=== PATIENT | male | born 1965 | race Caucasian/White ===

== ENCOUNTER → 2023-11-25 10:35 | Outpatient (REF) | payer OTHER, SELFPAY | LOC: RCS 10:35 | PROVIDERS: ATTENDING PHYSICIAN Internal Medicine | DX: R06.09 Other forms of dyspnea (principal) | CPT/HCPCS: 93017; 93005; 93350 ==

== ENCOUNTER 2024-01-02 06:16 | Day surgery (SDC) | payer OTHER, SELFPAY ==
[2023-12-25 08:24] VITALS: BMI 29.3
--- NOTE | 2023-12-25 14:24 | HPS.HSE ---
Family Physician
-
Family Physician: Cesar Winter
Chief Complaint
-
Precordial chest pain.
History of Present Illness
The patient is a 58 year old male presenting today for precordial chest pain. He reports that in September 2023 he attempted to take a hike with his son and in [place], [place]. He ascended approximately 50 yards and experienced an
episode of substernal chest tightness that radiated down his bilateral arms. This was also accompanied by shortness of breath and hand paraesthesias. His chest pain was noted to resolve after 5-10 minutes at rest. Since then, he has experienced more
mild versions of the same chest discomfort when walking uphill, even at short distances. He did undergo a stress echocardiogram in November 2023 for which he exercised 9 minutes of the Benjamin protocol to 93% MPHR. He did experience 3/10 chest pain at peak
exercise without ischemic EKG changes. It is recommended he undergo a left cardiac catheterization for further symptom assessment. He denies any current complaints today such as chest pain and shortness of breath at rest, nausea, vomiting, diarrhea,
lightheadedness, dizziness, cough, sore throat, or fever.
Medical History
Past Medical History
Past Medical History: Reports Other
Additional Past Medical History:
1. Precordial chest pain.
2. Coronary artery disease by elevated coronary calcium score.
3. Hypertension.
4. Dyslipidemia.
5. PACs and PVCs, asymptomatic.
6. Allergy induced asthma.
7. GERD.
8. Colon polyps.
9. Diverticulosis.
10. Vertigo.
11. Lumbar herniated discs.
12. Sciatica.
13. Renal cell carcinoma, status post left partial nephrectomy 2014.
14. Infrequent tobacco abuse.
Past Surgical History: Reports Other
Additional Past Surgical History:
1. Left partial nephrectomy.
2. Abdominal hernia repair in childhood.
3. [place] teeth extraction.
4. Colonoscopy.
Social History
Tobacco: Other (He reports infrequent cigar smoking while golfing; otherwise, he denies any other past history of tobacco abuse. )
Alcohol: Occasional
Personal:
Living: Other (He lives with his in a 2 story home. His son will also be living in the household soon. )
Family History
Family History: Not pertinent
Allergies / Home Medications
Allergy/Medication List:
Home medications:
1. Aspirin 81 mg p.o. daily.
2. Claritin 10 mg p.o. daily as needed.
3. Losartan 12.5 mg p.o. daily.
4. Aleve 220 mg p.o. daily as needed.
5. Omeprazole 40 mg p.o. daily as needed.
6. Rosuvastatin 40 mg p.o. daily.
Allergies: Ragweed pollen. No known drug allergies.
Review of Systems
-
A 12 point ROS was completed and negative except as noted: Yes
Physical Exam
Vital Signs
Blood pressure 129/72. Heart rate 62. Respirations 18. Pulse ox 96% on room air.
Height 6 feet, 1 inch. Weight 100.7 kg. BMI 29.3.
Physical Exam
General: Well Developed, Well Nourished and No Apparent Distress
HEENT: NormoCephalic, Moist mucous membranes, Atraumatic and PERRLA
Respiratory: Clear
Cardiac: Regular Rhythm
GI: Soft, Non Tender and Non Distended
Musculoskeletal: No Edema and Normal Gait & Station
Skin: Warm and Dry
Neuro: AO x 3 and Nonfocal/grossly intact
Laboratory Results
-
EKG 12/25/2023: Normal sinus rhythm.
Stress echocardiogram 11/25/2023: The patient was exercised by the Benjamin protocol. The patient completed Stage 3 for 9:00 minutes achieving 10 METS. The blood pressure response was normal for exercise with hypertensive baseline noted. The exercise
tolerance was average. PACs and PVCs occurred during the study. Normal resting blood pressure. The patient's target heart rate was achieved. The patient experienced 3/10 chest pain at peak exercise.
Impression/Plan
-
IMPRESSION/PLAN:
1. Precordial chest pain: The patient is in need of a left cardiac catheterization with Dr. Juan Pablo Campos on 01/02/2024. The benefits and risks of the procedure have been explained to the patient. The patient understands these risks and wishes to
proceed. He is aware to continue his daily baby Aspirin up to and including the morning of his procedure.
[2024-01-02] VITALS (14 sets, daily range): BP systolic 131–147; BP diastolic 59–91; BMI 29.0
[2024-01-02 06:51] LABS: Mean Corp Hgb Conc. 31.9 g/dL (33.0-37.0); Mean Corpuscular Hgb 27.6 pg (27.0-31.0); Mean Corpuscular Volume 86.4 fL (80.0-94.0); Mean Platelet Volume 10.7 fL (7.4-10.4); Platelet Count 189 10^3/uL (130-400); Red Blood Cell Count 5.44 10^6/uL (4.70-6.10); Red Cell Dist. Width 12.9 % (11.5-14.5); White Blood Cell Count 7.7 10^3/uL (4.8-10.8)
[2024-01-02] MEDS: NSS 299 ML IV (06:52)
[2024-01-02 07:01] LABS: Blood Urea Nitrogen 21 mg/dl (9-20); Calcium 9.6 mg/dl (8.4-10.2); Carbon Dioxide 30 mmol/L (22-30); Chloride 102 mmol/L (98-107); Estimated Creatinine Clearance 90 ml/min; Glucose 103 mg/dl (70-99); Potassium 4.3 mmol/L (3.5-5.1); Sodium 141 mmol/L (135-145); eGFR > 60.00
--- NOTE | 2024-01-02 08:55 | ITS.CL.CATH ---
[facility] - Catheterization
Cardiac Catheterization
Procedure Report:
CARDIAC CATHETERIZATION REPORT
Date of Procedure: 01/02/2024
Referring: Cesar Winter DO
Indication: Recent onset angina
HEMODYNAMIC DATA
AO: 122/68
LV: 122/20
LEFT VENTRICULOGRAPHY: Normal segmental wall motion with EF 64%
CORONARY ANGIOGRAPHY
Dominance: Right
Left Main: Normal
LAD: 10-20% mid LAD stenosis with otherwise trivial luminal irregularities
Circumflex: Large distribution vessel with trivial luminal disease
RCA: Normal
Closure Device: None-the procedure was performed via the right radial artery. The David's test was normal prior to the procedure.
Radiation (mGy): 644
DAP (cm2.Gy): 55.0
Fluoroscopy time: 8.3 minutes
CONCLUSIONS
1: Normal left ventricular function with EF 64%
2: Trivial CAD
3. Continue ASA/statin
Copy to: Cesar Winter DO, Juan Pablo Campos MD
Juan Pablo Campos MD, [facility], [facility]
== END 2024-01-02 11:30 | disposition home or self-care (01) ==
LOC: CATH 06:16
PROVIDERS: ATTENDING PHYSICIAN Internal Medicine Cardiovascular Disease; FAMILY PHYSICIAN Internal Medicine
DX: R07.2 Precordial pain (principal); I25.10 Atherosclerotic heart disease of native coronary artery without angina pectoris; I10 Essential (primary) hypertension; E78.5 Hyperlipidemia, unspecified; J45.909 Unspecified asthma, uncomplicated; K21.9 Gastro-esophageal reflux disease without esophagitis; Z85.528 Personal history of other malignant neoplasm of kidney; F17.290 Nicotine dependence, other tobacco product, uncomplicated; Z79.82 Long term (current) use of aspirin
CPT/HCPCS: 80048; 85027; 93005; 93458; C1894

== ENCOUNTER → 2024-11-05 08:05 | Outpatient (REF) | payer OTHER, SELFPAY | LOC: HWRAD 08:05 | PROVIDERS: ATTENDING PHYSICIAN Physician Assistant; FAMILY PHYSICIAN Internal Medicine | DX: N28.89 Other specified disorders of kidney and ureter (principal) | CPT/HCPCS: 71046; 76775 ==